=== PATIENT | female | born 1970 | race Caucasian/White ===

== ENCOUNTER → 2017-03-13 | Outpatient (CLI) | payer BC ==
--- NOTE | 2017-03-14 08:50 | CT ---
EXAM DESCRIPTION: Chest w/o Contrast CLINICAL HISTORY: CHEST WALL PAIN COMPARISON: Chest radiograph 03/21/2007. TECHNIQUE: Spiral-axial scans at 5.0 mm intervals through the lungs and thorax without IV contrast. Coronal and sagittal 2.0 mm Mm reconstructions. Total Exam DLP: 353.7 mGy-cm. This exam was performed according to our departmental dose-optimization program which includes automated exposure control, adjustment of the mA and/or kV according to patient size and/or use of iterative reconstruction technique; to reduce radiation dose to as low as reasonably achievable (ALARA). FINDINGS: No bone destruction. No bone erosion or spur formation at the costovertebral junctions or the costochondral junctions. No soft tissue masses around the joint spaces or junctions. No rib fractures. Sternoclavicular joints are unremarkable and symmetric. Early spondylosis of the disc spaces at T3-4 T4-5 and T5-6 with anterior endplate ridging. Also right posterior endplate spurring at T4-5 projecting into the spinal canal. No definite canal stenosis. Right foraminal stenosis at T10-11 with other foramina patent. Focal right posterior apical pleural thickening. Small pleural scar lateral left upper lobe. No abnormal pulmonary nodules. No masses or infiltrates. No pleural effusion or pneumothorax. Heterogeneous low-density in the bilateral thyroid lobes. No soft tissue masses in the neck base to thoracic inlet. No large soft tissue masses in the hilum or mediastinum, but sensitivity is decreased due to lack of IV contrast. No enlarged axillary lymph nodes. Bilateral saline breast implants. No subdiaphragmatic fluid or free air in the included peritoneal space. Normal density and size of the bilateral adrenal glands. IMPRESSION: 1. No abnormalities noted in the costosternal joints, costochondral joints, or costovertebral joints. No abnormal rib density and no rib fractures. No soft tissue mass in the chest wall. Sternoclavicular joints are unremarkable. 2. Early spondylosis at three levels of the upper mid thoracic spine. Possible bony stenosis of the right T10-11 foramina. Consider MRI scan of the thoracic spine without IV contrast. Electronically signed by: Gualberto Chan MD 03/14/2017 8:49 AM CDT
== END | disposition home or self-care (01) ==
LOC: LAB.O 09:17
PROVIDERS: ATTEND Nurse Practitioner
DX: R07.89 Other chest pain (principal); M47.894 Other spondylosis, thoracic region

== ENCOUNTER → 2020-02-13 | Outpatient (CLI) | payer BC ==
--- NOTE | 2020-02-16 13:20 | MRI ---
Study: MRI of the Left Shoulder. Indication: STRAIN TENDON, MUSCLE, ROTATOR CUFF RIGHT SHOULDER Technique: Multiplanar, multi sequence MRI of the left shoulder was obtained without intravenous contrast. Comparison: None Findings: Mild to moderate AC joint osteoarthritis. Type I acromion with mild lateral downsloping. Trace subacromial/subdeltoid bursal fluid. Supraspinatus and infraspinatus tendinosis. Subscapularis tendinosis. Moderate intramuscular edema noted within the deep aspect of the supraspinatus muscle belly but only partially visualized within the field of view. This can indicate sequela of a muscle strain. Occult fracture of the more medial aspect of the scapula and secondary intramuscular edema could account for the edema as well. Mild atrophy and grade 1 infiltration rotator cuff musculature. Long head biceps tendon intact. Circumferential truncation and degeneration. Mild glenohumeral joint osteoarthritis with a tiny joint effusion. Thickening and edema inferior glenohumeral ligament which can be seen with adhesive capsulitis. Impression: Supraspinatus, infraspinatus, and subscapularis tendinosis without tear. Edema within the deep supraspinatus muscle belly which can indicate sequela of a muscle strain. Occult more medial scapular fracture should be considered. Dedicated CT of the right scapula could better evaluate if there is concern for fracture. Circumferential labral truncation and degeneration. Mild atrophy and grade 1 fatty infiltration rotator cuff musculature. Mild glenohumeral joint osteoarthritis. Adhesive capsulitis. Mild to moderate AC joint osteoarthritis. Electronically signed by: Carl Lopez MD 02/16/2020 1:18 PM CDT
== END ==
LOC: MRI 11:32
PROVIDERS: ATTEND Orthopaedic Surgery
DX: S46.011D Strain of muscle(s) and tendon(s) of the rotator cuff of right shoulder, subsequent encounter (principal); M19.012 Primary osteoarthritis, left shoulder; M75.02 Adhesive capsulitis of left shoulder; S43.432D Superior glenoid labrum lesion of left shoulder, subsequent encounter; R60.9 Edema, unspecified; M62.512 Muscle wasting and atrophy, not elsewhere classified, left shoulder; M75.92 Shoulder lesion, unspecified, left shoulder